=== PATIENT | female | born 1980 | race Caucasian/White ===

== ENCOUNTER 2016-10-15 16:14 | Emergency (ER) | payer BC ==
[~2016-10-15] VITALS: Ht 160 cm; Wt 74.5 kg
[~2016-10-15 16:14] MED LIST: DILAUDID4 MG PO; FLEXERIL10 MG PO; MOTRIN800 MG PO; Macrobid PO; Motrin PO; NOHOMEMEDS; NORCO 5/3251 TABLET PO; PERCOCET 5/31 TABLET PO; Tenormin PO
[2016-10-15 16:58] LABS: ADD MIUA? YES; BILIRUBIN NEGATIVE; BLOOD NEGATIVE; COLOR DK YELLOW ((YELLOW)); GLUCOSE (STRIP) NEGATIVE; KETONES NEGATIVE; LEUKOCYTES NEGATIVE; NITRITE NEGATIVE; PROTEIN (STRIP) 30; UROBILINOGEN 0.2 MG/DL (0.2-1.0)
[2016-10-15 17:10] LABS: HEMATOCRIT 48.1 % (36.0-46.0); MCH 30.3 PG (29.0-34.0); MCHC 33.5 G/DL (30.0-36.0); MCV 90.4 FL (83-99); PLATELET COUNT 350 K/uL (156-360); RBC DIS.WIDTH-CV 12.3 % (11.8-14.6); RBC DIS.WIDTH-SD 40.4 % (39-53); RED BLOOD COUNT 5.32 M/uL (3.80-5.20); WHITE BLOOD COUNT 10.3 K/uL (4.1-10.2)
[2016-10-15 17:19] LABS: CHLORIDE 100 mEq/L (99-109); POTASSIUM 3.9 mEq/L (3.7-5.4); SODIUM 141 mEq/L (136-147)
[2016-10-15 17:22] LABS: GLUCOSE 85 mg/dL (70-99)
[2016-10-15 17:23] LABS: ANION GAP 15 MEQ/L (2-14)
[2016-10-15 17:24] LABS: TOTAL BILIRUBIN 0.4 mg/dL (0.0-1.0)
[2016-10-15 17:25] LABS: ALKALINE PHOSPHATASE 88 IU/L (3-129); GFR ESTIMATE (CALCULATED) > 59 mL/min/
[2016-10-15 17:26] LABS: UREA NITROGEN (BUN) 11 mg/dL (9-23)
[2016-10-15 17:35] LABS: BACTERIA RARE; EPITHELIAL CELLS RARE; RED BLOOD CELLS NONE SEEN /HPF (0-5); UCUL ADDED? NO; WHITE BLOOD CELLS NONE SEEN /HPF (0-5)
[2016-10-15 17:36] LABS: AMORPHOUS URATES CRYSTALS 1+; CASTS PRESENT /LPF; CRYSTALS PRESENT; HYALINE CASTS 0-5 /LPF; MUCUS RARE
[2016-10-15] MEDS ORDERED: ZOFRAN ODT4 MG PO (20:49)
[2016-10-15 21:00] VITALS: BP 142/89
== END 2016-10-15 21:01 | disposition home or self-care (01) ==
LOC: EME 16:14 → RME 16:14
DX: R11.2 Nausea with vomiting, unspecified (principal); R19.7 Diarrhea, unspecified; E86.0 Dehydration; I10 Essential (primary) hypertension; F17.200 Nicotine dependence, unspecified, uncomplicated; Z88.1 Allergy status to other antibiotic agents
CPT/HCPCS: 80053; 81003; 85027; 99281; 99285; J2405; J7030